=== PATIENT | female | born 1930 | race Caucasian/White ===

== ENCOUNTER 2018-11-12 11:18 | Inpatient (IN) | payer MEDICARE ==
[~2018-11-12] VITALS: Ht 154.9 cm; Wt 59.0 kg
[2018-11-12 11:46] LABS: BASOPHILS # (AUTO) 0.1 K/uL (0.0-8.0); BASOPHILS % (AUTO) 1.1 % (0.0-2.0); EOSINOPHILS # (AUTO) 0.1 K/uL (0.0-0.7); EOSINOPHILS % (AUTO) 1.7 % (0.0-7.0); HEMATOCRIT 41.3 % (31.2-41.9); HEMOGLOBIN 13.4 g/dL (10.9-14.3); LYMPHOCYTES # (AUTO) 1.3 K/uL (20.0-40.0); LYMPHOCYTES % (AUTO) 16.8 % (20.5-51.5); MEAN CORPUSCULAR HEMOGLOBIN 30.4 uug (24.7-32.8); MEAN CORPUSCULAR HGB CONC 33 g/dL (32.3-35.6); MEAN CORPUSCULAR VOLUME 93.4 fL (75.5-95.3); MONOCYTES # (AUTO) 0.6 K/uL (2.0-10.0); MONOCYTES % (AUTO) 8.2 % (0.0-11.0); NEUTROPHILS # (AUTO) 5.6 K/uL (1.8-8.9); NEUTROPHILS % (AUTO) 72.2 % (38.5-71.5); PLATELET COUNT (AUTO) 275 K/uL (179-408); RED BLOOD CELL COUNT(AUTO) 4.42 MIL/uL (3.63-4.92); WHITE BLOOD COUNT (AUTO) 7.7 K/uL (3.8-11.8)
--- NOTE | 2018-11-12 11:47 | NUR ---
DR VALADEZ'S OFFICE CALLED TO REQUEST FOR CURRENT MEDS AND H&P - NO OLD RECORDS FOUND FOR PT.
[2018-11-12 11:53] LABS: CARBON DIOXIDE 29 mmol/L (21-32); CHLORIDE 107 mmol/L (98-107); CREATININE 0.7 mg/dL (0.6-1.3); GLUCOSE 101 mg/dL (74-106); POTASSIUM 4.1 mmol/L (3.5-5.1); UREA NITROGEN, BLOOD 16 mg/dL (7-18)
[2018-11-12 11:59] LABS: ALANINE AMINOTRANSFERASE 15 U/L (14-59); ALKALINE PHOSPHATASE 68 U/L (50-136); ASPARTATE AMINOTRANSFERASE 17 U/L (15-37); BILIRUBIN,DIRECT 0.1 mg/dL (0.0-0.2); BILIRUBIN,TOTAL 0.5 mg/dL (0.2-1.0); TOTAL PROTEIN, SERUM 6.8 g/dL (6.4-8.2)
[2018-11-12 12:08] LABS: *BILIRUBIN,URIN 1+ (NEGATIVE); *BLOOD, URINE NEGATIVE (NEGATIVE); *CLARITY,URINE CLEAR (CLEAR); *COLOR,URINE YELLOW (YELLOW); *KETONES,URINE TRACE (NEGATIVE); LEUKOCYTE ESTERASE ,URINE NEGATIVE (NEGATIVE); NITRITE, URINE NEGATIVE (NEGATIVE); UGLUCOSE NEGATIVE (NEGATIVE)
--- NOTE | 2018-11-12 12:10 | NUR ---
pt becoming restless, comfort measures and reorientation interventios will be provided.pt left to go home and will be back with the med bottles.
--- NOTE | 2018-11-12 12:15 | NUR ---
PT'S UNABLE TO RECALL PT'S MEDICATIONS - STILL WAITING FOR INFO FROM PMD OFFICE.
[2018-11-12 12:16] LABS: BACTERIA,URINE NONE SEEN /HPF (NONE SEEN); MUCUS,URINE FEW /LPF (0-FEW); RBC,URINE 0-3 /HPF (0-3); SQUAMOUS EPITHELIAL CELL,UR NONE SEEN /HPF (NONE SEEN); WBC,URINE 0-3 /HPF (0-3)
[2018-11-12] MEDS ORDERED: OLANZAPINE 10 MG VIAL IM ONE ×2 (13:00)
--- NOTE | 2018-11-12 13:29 | NUR ---
dr. prieto at bedside
--- NOTE | 2018-11-12 13:47 | NUR ---
pt transfered to [facility] in stable condition. Addendum: 11/12/18 at 1349 by ANNI pt calm and smiling at this point.
--- NOTE | 2018-11-12 14:00 | NUR ---
RECEIVED PATIENT , VS STABLE, PATIENT IS CONFUSED AND HARD TO REORIENT RISK FOR FALL, SAFETY REINFORCED AND CONT MONITORING WILL GET ORDERS FOR 1;1 SITTER
[2018-11-12] MEDS ORDERED: DONE23TA3 PO (14:21)
[2018-11-12] MEDS ORDERED: MIRA25TA PO (14:21)
[2018-11-12] MEDS ORDERED: SIMV20TA6 PO (14:21)
[2018-11-12] MEDS ORDERED: LORA1TAB PO (14:21)
[2018-11-12] MEDS ORDERED: ESCI10TA55 PO (14:21)
[2018-11-12 15:36] VITALS: BP 125/85
[2018-11-12] MEDS: LORAZEPAM 2 MG/1 ML VIAL IV PRN (16:58)
--- NOTE | 2018-11-12 19:20 | NUR ---
RECEIVED PT ON BED. PT PLEASANT WHEN APPROACH. IV INTACT. SITTER AT BEDSIDE FOR SAFETY. PT IN NO ACUTE DISTRESS. WILL CONTINUE TO MONITOR.
[2018-11-12] MEDS: SIMVASTATIN 20 MG TABLET PO SCH (20:19)
[2018-11-12 20:55] VITALS: BP 104/50
[2018-11-13] MEDS: LORAZEPAM 2 MG/1 ML VIAL IV PRN ×3 (01:58→22:40)
[2018-11-13 05:59] VITALS: BP 100/47
--- NOTE | 2018-11-13 06:08 | NUR ---
PT SLEPT INTERMITTENTLY. SITTER AT BEDSIDE FOR SAFETY. PT TRIES TO GET OUT OF THE BED. PT YELLING AND ANXIOUS.. NEEDS REORIENTATION. ATIVAN GIVEN AT 0158 H. PT CONDITION IMPROVED. PT STABLE AND IN NO ACUTE DISTRESS. PRESCRIBED MEDICATION GIVEN AND PT TOLERATED IT WELL. SAFETY AND COMFORT PROVIDED. ALL NEEDS ARE MET. WILL ENDORSE ACCORDINGLY TO INCOMING NURSE FOR CONTINUITY OF CARE.
--- NOTE | 2018-11-13 07:27 | NUR ---
Nurse Notes: received report from the night nurse, Sofya Osorio RN, patient is asleep and in no respiratory distress. Sitter is room watching both patients.
[2018-11-13] MEDS: DONEPEZIL 10 MG TABLET PO SCH (09:26)
[2018-11-13] MEDS: ESCITALOPRAM OXALATE 10 MG TABLET PO SCH (09:26)
[2018-11-13] MEDS: [UNRECOGNIZED DRUG - OTHER] PO SCH (10:03)
[2018-11-13] MEDS ORDERED: Z GUARD REMEDY PASTE 57 GM TUBE TOP PRN (15:00)
--- NOTE | 2018-11-13 15:04 | NUR ---
WOUND CARE CONSULT: LIMITED ASSESSMENT TODAY DUE TO PT AGITATION AND REFUSAL TO TURN. RT ARM ABRASION NOTED, PRESENT ON ADMISSION. RECOMMENDATIONS MADE FOR WOUND CARE AND SKIN PROTECTION. DISCUSSED WITH NURSING STAFF. WILL SEE PRN. MEJIA IN AGREEMENT WITH PLAN OF CARE. Addendum: 11/13/18 at 1505 by EARNEST SLOAN RN Amended: Links added.
--- NOTE | 2018-11-13 17:51 | NUR ---
Nurse Notes: Sabiha leal has been fax twice for psych consult. Dr Dowd is city distribution clerk. [facility] was called, waiting for Facesheet. It was fax yesterday morning at [phone] 11/12/2018
--- NOTE | 2018-11-13 18:43 | NUR ---
Nurse Notes: seen by psych MD Dr Dickey, patient is able to state her children, three boys and 1 girl, stated she is not , but has been at bedside since 0900 and left at 1730. patient is confused. needed Ativan IV earlier.
--- NOTE | 2018-11-13 19:20 | NUR ---
RECEIVED PT ON BED. PT TRYING TO GET OUT OF THE BED. PT CONFUSE. PT STATING HER KIDS ARE SMALL AND NEEDS HER, NO ONE IS GOING TO TAKE CARE OF THEM AND SHE NEEDS TO GO HOME. SITTER AT BEDSIDE FOR SAFETY. PT VITAL SIGNS STABLE. PRESCRIBED MEDICATION GIVEN AND PT TOLERATED IT WELL. SAFETY AND COMFORT PROVIDED. ALL NEEDS ARE MET. WILL CONTINUE TO MONITOR.
--- NOTE | 2018-11-13 19:25 | NUR ---
Shift Report: report given to the night nurse Sofya Osorio RN, patient is transferred into 3120 with sitter watching 3120 and 3118. Patient is confused, bed alarm is on, In no respiratory distress.
[2018-11-13] MEDS: OLANZAPINE ZYDIS 5 MG TAB.RAPDIS PO PRN (19:33)
[2018-11-13 20:00] VITALS: BP 109/49
[2018-11-13] MEDS: SIMVASTATIN 20 MG TABLET PO SCH (20:17)
[2018-11-13] MEDS: Z GUARD REMEDY PASTE 57 GM TUBE TOP SCH (20:27)
[2018-11-14 05:13] VITALS: BP 111/57
--- NOTE | 2018-11-14 05:43 | NUR ---
PT SLEPT INTERMITTENTLY. PT SHOWS NO SIGNS OF ACUTE DISTRESS. PT IV INTACT.PRESCRIBED MEDICATION GIVEN AND PT TOLERATED IT WELL.PT TURNED AND REPOSITIONED. SAFETY AND COMFORT PROVIDED. ALL NEEDS ARE MET.WILL ENDORSE ACCORDINGLY TO INCOMING NURSE FOR CONTINUITY OF CARE. Addendum: 11/14/18 at 0544 by GALA BROCK RN WRONG PATIENT
--- NOTE | 2018-11-14 06:15 | NUR ---
PT SLEPT INTERMITTENTLY. PT TRYING TO GET OUT OF THE BED. PT CONFUSE. GIVEN ATIVAN AT 2240H. PT TOLERATED IT WELL. PT IV AT RIGHT FOREARM 22 G. SITTER AT BEDSIDE FOR SAFETY. PT VITAL SIGNS STABLE. PRESCRIBED MEDICATION GIVEN AND PT TOLERATED IT WELL. SAFETY AND COMFORT PROVIDED. ALL NEEDS ARE MET. WILL ENDORSE ACCORDINGLY TO INCOMING NURSE FOR CONTINUITY OF CARE.
--- NOTE | 2018-11-14 07:22 | NUR ---
Receive patient resting in bed , no s/s of acute distress noted at this time. bed in low position with 2 side rails up. safety and comfort provide at all times. will continue to monitor and continue treatment plan.
[2018-11-14] MEDS: [UNRECOGNIZED DRUG - OTHER] PO SCH (09:52)
[2018-11-14] MEDS: DONEPEZIL 10 MG TABLET PO SCH (09:52)
[2018-11-14] MEDS: ESCITALOPRAM OXALATE 10 MG TABLET PO SCH (09:52)
[2018-11-14] MEDS: Z GUARD REMEDY PASTE 57 GM TUBE TOP SCH ×2 (11:03→21:47)
[2018-11-14 11:04] VITALS: BP 128/56
--- NOTE | 2018-11-14 18:32 | NUR ---
PATIENT WITH 1:1 SITTER AT BEDSIDE FOR SAFETY. PATIENT IS ALERT AND ORIENTED X1 AND IS CONFUSED. FORGETS LIMITATIONS. NO S/S OF ACUTE DISTRESS NOTED, AND NO C/O PAIN AT THIS TIME. PATIENT TOOK MEDS ORDERED. KEPT CLEAN AND DRY AT ALL TIMES. BED IN LOW POSITION AND 2 SIDE RAILS UP. WILL CONTINUE TO MONITOR AND CONTINUE TREATMENT PLAN.
[2018-11-14 19:45] VITALS: BP 138/63
--- NOTE | 2018-11-14 19:45 | NUR ---
PATIENT ALERT BUT CONFUSED, NO SOB NO CHEST PAIN NOTED. PATIENT HAS EPISODES OF AGITATION MB TRIED TO CLIMB OUT OF BED, PATIENT TRIES TO AMBULATE BY HERSELF, BUT LOWER EXTREMITY ARE WEAK RISK FOR FALL AND INJURY. PATIENT ASSISTED WITH TOILETING, OFFERED FOOD AND WATER, WITH EPISODES OF AGITATION MB YELLING AND SCREAMING, CONT ON 1;1 SITTER FOR SAFETY. CONT TO MONITOR.
[2018-11-14] MEDS: SIMVASTATIN 20 MG TABLET PO SCH (20:56)
[2018-11-14] MEDS: OLANZAPINE ZYDIS 5 MG TAB.RAPDIS PO PRN (20:57)
[2018-11-15] MEDS: OLANZAPINE ZYDIS 5 MG TAB.RAPDIS PO PRN ×2 (04:35→21:33)
--- NOTE | 2018-11-15 04:44 | NUR ---
PATIENT AWAKE ALL NIGHT, AND SHE HAS EPISODES OF YELLING AND SCREAMING. GIVEN ZYPREXA ORDERED. CONT ON 1;1 SITTER FOR SAFETY, TRIES TO CLIMB OUT OF BED, ASSISTED WITH TOILETING, OFFER FOOD AND WATER. CONT TO MONITOR.
[2018-11-15 04:46] VITALS: BP 127/58
[2018-11-15 06:44] LABS: BASOPHILS # (AUTO) 0.1 K/uL (0.0-8.0); EOSINOPHILS # (AUTO) 0.2 K/uL (0.0-0.7); LYMPHOCYTES # (AUTO) 1.4 K/uL (20.0-40.0); MEAN CORPUSCULAR HGB CONC 32 g/dL (32.3-35.6); MONOCYTES # (AUTO) 0.7 K/uL (2.0-10.0); NEUTROPHILS # (AUTO) 7.6 K/uL (1.8-8.9)
[2018-11-15 06:50] LABS: CARBON DIOXIDE 24 mmol/L (21-32); CHLORIDE 107 mmol/L (98-107); CREATININE 0.6 mg/dL (0.6-1.3); GLUCOSE 109 mg/dL (74-106); PHOSPHOROUS 3.3 mg/dL (2.5-4.9); POTASSIUM 4.1 mmol/L (3.5-5.1); UREA NITROGEN, BLOOD 18 mg/dL (7-18)
[2018-11-15 07:02] LABS: BASOPHILS % (AUTO) 1.1 % (0.0-2.0); EOSINOPHILS % (AUTO) 2.3 % (0.0-7.0); HEMATOCRIT 43.2 % (31.2-41.9); LYMPHOCYTES % (AUTO) 14.1 % (20.5-51.5); MEAN CORPUSCULAR HEMOGLOBIN 30.1 uug (24.7-32.8); MEAN CORPUSCULAR VOLUME 93.2 fL (75.5-95.3); NEUTROPHILS % (AUTO) 75.5 % (38.5-71.5); PLATELET COUNT (AUTO) 255 K/uL (179-408); RED BLOOD CELL COUNT(AUTO) 4.63 MIL/uL (3.63-4.92)
[2018-11-15 08:16] VITALS: BP 113/56
[2018-11-15] MEDS ORDERED: OLAN5TAB6 PO (08:56)
[2018-11-15] MEDS ORDERED: HALOPERIDOL LACTATE 5 MG/1 ML VIAL IM PRN (09:00)
[2018-11-15] MEDS: Z GUARD REMEDY PASTE 57 GM TUBE TOP SCH ×2 (09:10→21:30)
[2018-11-15] MEDS: [UNRECOGNIZED DRUG - OTHER] PO SCH (09:14)
[2018-11-15] MEDS: ESCITALOPRAM OXALATE 10 MG TABLET PO SCH (09:14)
[2018-11-15] MEDS: DONEPEZIL 10 MG TABLET PO SCH (09:14)
--- NOTE | 2018-11-15 09:20 | NUR ---
Patient in bed, asleep easily arousable, not in any form of distress. She denies any pain or discomfort. 1:1 sitter at bedside for safety. Safety measures in place. Physical therapist tried to get her up to ambulate but patient refused and patient stated she's tired.
[2018-11-15 11:22] VITALS: BP 118/66
--- NOTE | 2018-11-15 12:25 | NUR ---
Patient seen and evaluated by speech therapist with no noted signs of aspiration. Patient's at bedside.
--- NOTE | 2018-11-15 13:23 | NUR ---
Patient up ambulating with with a walker with physical therapist, no complain of any discomfort. Patient also assisted to the bathroom prior to ambulation.
[2018-11-15 15:17] VITALS: BP 133/54
[2018-11-15 19:57] VITALS: BP 108/72
[2018-11-15] MEDS: SIMVASTATIN 20 MG TABLET PO SCH (21:29)
--- NOTE | 2018-11-15 22:05 | NUR ---
Patient was becoming agitated, screaming, increasingly confused. Zypreza PRN dose given. IV was flushed and locked. Sitter at bedside.
[2018-11-16 06:12] VITALS: BP 115/66
--- NOTE | 2018-11-16 07:10 | NUR ---
Received report from documentation supervisor nurse, patient in bed asleep, no distress noted at this time, bed in low position, side rails up x2, sitter at bedside.
[2018-11-16 07:18] VITALS: BP 112/79
[2018-11-16] MEDS: DONEPEZIL 10 MG TABLET PO SCH (08:30)
[2018-11-16] MEDS: ESCITALOPRAM OXALATE 10 MG TABLET PO SCH (08:30)
[2018-11-16] MEDS: OLANZAPINE ZYDIS 5 MG TAB.RAPDIS PO PRN (08:32)
[2018-11-16] MEDS: [UNRECOGNIZED DRUG - OTHER] PO SCH (08:32)
[2018-11-16] MEDS: Z GUARD REMEDY PASTE 57 GM TUBE TOP SCH (08:32)
[2018-11-16 11:00] VITALS: BP 104/48
--- NOTE | 2018-11-16 13:35 | NUR ---
REPORT WAS CALLED TO BRITTA AT FACILITY, PICTURES TAKEN OF ARM ABRASION, MEDICATIONS RETRIEVED FROM PHARMACY AND GIVEN TO . PATIENT IN NO DISTRESS AT THE TIME OF DISCHARGE. PATIENT TRANSFERRED VIA AMBULANCE.
== END 2018-11-16 13:35 | DRG 640 ==
LOC: ER 11:20 → MEDSURG3 13:32
PROVIDERS: ADMIT Student in an Organized Health Care Education/Training Program; ATTEND Student in an Organized Health Care Education/Training Program
DX: E86.0 Dehydration (principal); G93.41 Metabolic encephalopathy; R62.7 Adult failure to thrive; G30.9 Alzheimer's disease, unspecified; F02.80 Dementia in other diseases classified elsewhere, unspecified severity, without behavioral disturbance, psychotic disturbance, mood disturbance, and anxiety; R29.6 Repeated falls; M50.30 Other cervical disc degeneration, unspecified cervical region; M48.02 Spinal stenosis, cervical region; F32.9 Major depressive disorder, single episode, unspecified; I67.2 Cerebral atherosclerosis; M11.231 Other chondrocalcinosis, right wrist; M13.88 Other specified arthritis, other site; S51.811A Laceration without foreign body of right forearm, initial encounter; W19.XXXA Unspecified fall, initial encounter; Y92.019 Unspecified place in single-family (private) house as the place of occurrence of the external cause; N32.81 Overactive bladder
CPT/HCPCS: 36415; 70030-TC; 70450; 71045; 72125; 73090; 83735; 84100; 85025; 85730; 87086; 92526; 92610; 93005; 97110; 97112; 97116; 97165; 97530; 97535; A4663; C1758; G0378; J2060; J2358